=== PATIENT | male | born 1965 | race Caucasian/White ===

== ENCOUNTER 2016-10-09 14:45 | Emergency (ER) | payer MEDICARE ==
[2016-10-09] MEDS ORDERED: Adacel Vial IM ONE ×2 (15:28→16:16)
[2016-10-09] MEDS ORDERED: Vistaril 50 MG/ML IM ONE ×2 (16:09→16:13)
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
[2016-10-09 16:40] LABS: BASOPHIL % 0.5 % (0.0-0.4); Eosinophil % 7.6 % (0.00-5.0); Granulocytes % 55.9 % (36.0-66.0); Lymphocytes % 22.5 % (24.0-44.0); Mean Cell Volume 96.9 fl (78-100); Mean Corpuscular Hemoglobin 32.3 pg (26-32); Mean Platelet Volume 10.9 fl (6-9.5); Monocytes % 13.5 % (0.0-12.0); Platelet Count 216 K/mm3 (150-450); Red Blood Count 4.15 M/mm3 (4.1-5.6); Red Cell Distribution Width 14.9 % (11.5-14.0); White Blood Count 6.6 K/mm3 (4.0-10.5)
[2016-10-09 16:57] LABS: ALBUMIN 3.5 g/dL (3.4-5.0); ALKALINE PHOSPHATASE 85 U/L (46-116); ANION GAP 17.9 MEQ/L (5-15); BILIRUBIN,TOTAL 0.3 mg/dL (0.2-1.0); BLOOD UREA NITROGEN 17 mg/dL (9-20); CHLORIDE 103 mEq/L (98-107); Glucose 78 MG/DL (70-110); SGOT/AST 22 U/L (15-37); SGPT/ALT 17 U/L (12-78); SODIUM 138 mEq/L (136-145); Total Protein 7.6 gm/dL (6.4-8.2)
[2016-10-09 17:02] LABS: ACETAMINOPHEN < 2.0 ug/ml (10-30)
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
[2016-10-09 17:59] LABS: Collection Type CCMS
[2016-10-09 18:00] LABS: COMPLETE URINE MICROSCOPIC? YES; Mucus SLIGHT /HPF (NEGATIVE); Ph 5.5 (5-6); WBC 0-2 /HPF (0-5)
[2016-10-09] MEDS ORDERED: Ativan 2 MG/1 ML VIAL SL ONE (19:33)
[2016-10-09] MEDS ORDERED: Ativan 2 MG/1 ML VIAL ONE (19:34)
[2016-10-09 22:16] VITALS: BP 117/77; PULSE 77; O2SAT 97
== END 2016-10-09 22:16 ==
LOC: ED 14:45
DX: F25.9 Schizoaffective disorder, unspecified (principal); R41.0 Disorientation, unspecified; T14.8 Other injury of unspecified body region; W57.XXXA Bitten or stung by nonvenomous insect and other nonvenomous arthropods, initial encounter; L23.9 Allergic contact dermatitis, unspecified cause; S01.01XA Laceration without foreign body of scalp, initial encounter; Z79.899 Other long term (current) drug therapy
CPT/HCPCS: 96372; 99285; 93005; 81000; 36415; 80307 ×2; 80320; 83986; 85025; 80053; 70450; G0481; 90471; 90715; J2060; J3410

== ENCOUNTER 2020-04-24 10:40 | Emergency (ER) | payer MEDICARE ==
[2020-04-24] MEDS ORDERED: Sodium Chloride 0.9% 1000 ML 1,000 ML IV STA (11:15)
[2020-04-24] MEDS ORDERED: Sodium Chloride 0.9% 1000 ML 1,000 ML ONE (11:19)
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
[2020-04-24 11:43] LABS: Absolute Neutrophil Ct (ANC) 3.42 (1.4-6.9); BASOPHIL % 0.6 % (0.0-0.4); Basophil (Absolute #) 0.04 (0-0.4); Eosinophil % 2.7 % (0.00-5.0); Eosinophil (Absolute #) 0.17 (0-0.5); Hematocrit 45.9 % (42-50); Hemoglobin 15.3 gm/dl (12.5-18.0); Lymphocyte (Absolute #) 2.08 (1.0-4.6); Lymphocytes % 32.5 % (24.0-44.0); Mean Cell Volume 99.6 fl (78-100); Mean Corpuscular Hemoglobin 33.2 pg (26-32); Mean Corpuscular Hgb Concent. 33.3 g/dl (32-36); Monocyte (Absolute #) 0.69 (0.0-1.3); Monocytes % 10.8 % (0.0-12.0); Neutrophil % 53.4 % (36.0-66.0); Platelet Count 255 K/mm3 (150-450); Red Blood Count 4.61 M/mm3 (4.1-5.6); Red Cell Distribution Width 14.1 % (11.5-14.0); White Blood Count 6.4 K/mm3 (4.0-10.5)
[2020-04-24 11:45] LABS: Appearance CLEAR (CLEAR); Bilirubin NEGATIVE (NEGATIVE); Blood NEGATIVE Ery/ul (0-5); Glucose NEGATIVE (NEGATIVE); Ketones NEGATIVE (NEGATIVE); Leukocyte Esterase NEGATIVE (NEGATIVE); Nitrite NEGATIVE (NEGATIVE); Protein,Urine Dip NEGATIVE (Negative); Urobilinogen NEGATIVE mg/dL (0-1)
[2020-04-24 11:58] LABS: ALKALINE PHOSPHATASE 84 U/L (38-126); AMYLASE 109 U/L (30-110); ANION GAP 13.3 MEQ/L (5-15); BLOOD UREA NITROGEN 11 mg/dL (9-20); CHLORIDE 102 mmol/L (98-107); Calcium 9.6 mg/dL (8.4-10.2); Carbon Dioxide 30 mmol/L (22-30); Creatinine 1 0.89 mg/dL (0.66-1.25); EST GLOMERULAR FILTRATION RATE > 60.0 ML/MIN; Glucose 83 mg/dL (74-106); LIPASE 464 U/L (23-300); Potassium 3.8 mmol/L (3.5-5.1); SGOT/AST 24 U/L (17-59); SGPT/ALT 21 U/L (0-50); SODIUM 141 mmol/L (137-145); Total Protein 8.6 g/dL (6.3-8.2)
[2020-04-24 12:52] VITALS: PULSE 67
[2020-04-24 14:19] VITALS: BP 121/87; O2SAT 99
--- NOTE | 2020-04-24 18:23 | XRAY ---
Indication: Left abdomen pain. Multiple contiguous axial images obtained through the abdomen and pelvis prior to and following 80 cc Isovue 370 contrast as ordered. Comparison: None. Lung bases demonstrates pulmonary emphysema and a few calcified granulomas. No infiltrate or effusion. Heart is not enlarged. Noncontrasted images are negative for pathologic visceral calcification/calculi. Stomach is mildly fluid distended. Noncontrasted stomach and bowel loops appear nonobstructed. Normal appendix. No free fluid/air. Postcontrast images demonstrate normal visceral enhancement and renal excretion. Remaining liver, gallbladder, pancreas, spleen, adrenal glands, kidneys, ureters, bladder, and aorta appear unremarkable. No pathologic retroperitoneal lymphadenopathy. Osseous structures intact with mild/moderate degenerative changes throughout the spine and remote appearing T12 superior endplate fracture with Schmorl node. Impression: 1. Pulmonary emphysema, chronic bony findings, and pulmonary calcified granulomas. 2. Remaining CT abdomen/pelvis with and without contrast exam is negative. Comment: Preliminary interpretation was made by [facility]. No critical discrepancy.
--- NOTE | 2020-04-24 18:25 | XRAY ---
Indication: Left abdomen pain. Comparison: Chest April 14, 2020. 2 view abdomen nonacute and nonobstructed. A few pelvic phleboliths. Osseous structures intact with mild multilevel lumbar degenerative spondylosis, minimal double curvature scoliosis, pubis symphysis degenerative changes, and remote-appearing T12 compression fracture. Single AP chest again demonstrates normal heart and lungs with a few tiny calcified granulomas. Bony thorax intact again with old left 6 rib fracture. Impression: Nonacute abdomen with chronic bony findings. Stable nonacute one view chest with again chronic features.
== END 2020-04-24 14:24 | disposition home or self-care (01) ==
LOC: ED 10:40
DX: R10.9 Unspecified abdominal pain (principal); R10.32 Left lower quadrant pain; Z79.899 Other long term (current) drug therapy; I10 Essential (primary) hypertension; E78.00 Pure hypercholesterolemia, unspecified
CPT/HCPCS: 36415; 74022; 74178; 80053; 81001; 82150; 83690; 85025; 96360; 99284

== ENCOUNTER 2020-05-12 06:29 | Day surgery (SDC) | payer MEDICARE ==
[2020-05-12] MEDS ORDERED: Lactated Ringers 1,000 ML IV SCH (06:30)
[2020-05-12] MEDS ORDERED: DIPRIVAN 200 MG/20 ML IV ONE (07:46)
[2020-05-12 09:11] VITALS: BP 105/43; PULSE 83; O2SAT 92
--- NOTE | 2020-05-12 11:26 | OP ---
SURGERY DATE/TIME: 05/12/2020 0800 PREOPERATIVE DIAGNOSIS: Left lower quadrant abdominal pain. POSTOPERATIVE DIAGNOSIS: Normal colon. PROCEDURE: Diagnostic colonoscopy. SURGEON: Tony Jeffers M.D. ANESTHESIA: MAC by Carlos Glass CRNA. ESTIMATED BLOOD LOSS: None. SPECIMENS: None. DESCRIPTION OF PROCEDURE: After informed written consent was obtained, the patient was taken to the endoscopy suite. He was placed in placed in left lateral decubitus position and adequate level of anesthesia was titrated to desired level of consciousness. A digital rectal exam showed normal sphincter tone and no internal lesions. The scope was inserted into the rectum and sequentially the entire colonic mucosa was traversed. The cecum was reached and verified with direct visualization of ileocecal valve. Upon withdrawal careful mucosal inspection revealed scattered areas of liquid stool. Prep was noted to be fair. There were no obvious mucosal abnormalities throughout the entire length of the colon. Prior to withdrawal retroflexion was performed and showed no internal lesions. The scope was removed and the patient was transferred to the recovery room in good condition.
== END 2020-05-12 09:23 | disposition home or self-care (01) ==
LOC: SDC 06:29
PROVIDERS: ATTEND Family Medicine
DX: R10.32 Left lower quadrant pain (principal); Z09 Encounter for follow-up examination after completed treatment for conditions other than malignant neoplasm; Z86.010 Personal history of colon polyps; E78.5 Hyperlipidemia, unspecified; Z79.899 Other long term (current) drug therapy
CPT/HCPCS: J2704

== ENCOUNTER 2021-02-09 12:00 | Day surgery (SDC) | payer MEDICARE ==
[2021-02-09] MEDS ORDERED: Depo-Medrol 40 MG/ML IM ONE (12:01)
[2021-02-09] MEDS ORDERED: BUPIVACAINE 0.5% VIAL IJ ONE (12:01)
[2021-02-09] MEDS ORDERED: Xylocaine 1% Vial 30 ML PF IJ ONE (12:01)
[2021-02-09] MEDS ORDERED: DIPRIVAN 200 MG/20 ML IV ONE (12:26)
[2021-02-09] MEDS ORDERED: Lactated Ringers 1,000 ML IV ONE (13:18)
--- NOTE | 2021-02-09 13:36 | XRAY ---
Indication: Right shoulder injection. Intraoperative fluoroscopy provided for 9 seconds. Single digital spot image submitted for interpretation demonstrates needle tip projecting over the right glenohumeral joint superiorly. Small amount of contrast injected for needle tip placement. Correlate with intraoperative findings/report.
--- NOTE | 2021-02-09 13:49 | XRAY ---
9 seconds fluoroscopy time in surgery for intra-articular injection of the right shoulder.
== END 2021-02-09 13:10 | disposition home or self-care (01) ==
LOC: SDC-PAIN 12:00
PROVIDERS: ATTEND Psychiatry & Neurology Pain Medicine
DX: M19.011 Primary osteoarthritis, right shoulder (principal); Z79.899 Other long term (current) drug therapy
CPT/HCPCS: 20550; 20610; 73030; 77002; J1030; J2001; J2704; Q9966

== ENCOUNTER 2021-04-13 14:54 | Day surgery (SDC) | payer MEDICARE ==
[2021-04-13] MEDS ORDERED: Sodium Chloride 0.9% 10 ML FLUSH Syringe IJ ONE (14:55)
[2021-04-13] MEDS ORDERED: Depo-Medrol 40 MG/ML IM ONE (14:55)
[2021-04-13] MEDS ORDERED: DIPRIVAN 200 MG/20 ML IV ONE (16:41)
[2021-04-13] MEDS ORDERED: Lactated Ringers 1,000 ML IV ONE (17:27)
--- NOTE | 2021-04-13 21:47 | XRAY ---
Indication: Right L4-S1 transforaminal KARIME. Intraoperative fluoroscopy provided for 31 seconds. 4 digital spot image submitted for interpretation demonstrates posterior needle tips projecting over the expected right L4 and L5 nerve roots. Small amount of contrast injected for needle tip placement. Correlate with intraoperative findings/report.
--- NOTE | 2021-04-14 09:04 | XRAY ---
31 seconds fluoroscopy time in surgery for right L4-S1 transforaminal KARIME.
== END 2021-04-13 17:08 | disposition home or self-care (01) ==
LOC: SDC-PAIN 14:54
PROVIDERS: ATTEND Psychiatry & Neurology Pain Medicine
DX: M54.16 Radiculopathy, lumbar region (principal); I25.10 Atherosclerotic heart disease of native coronary artery without angina pectoris; J44.9 Chronic obstructive pulmonary disease, unspecified; F41.9 Anxiety disorder, unspecified; F32.9 Major depressive disorder, single episode, unspecified; Z79.899 Other long term (current) drug therapy
CPT/HCPCS: 64483; 64484; 72100; 77003; J1030; J2704; Q9966

== ENCOUNTER 2021-05-18 11:54 | Day surgery (SDC) | payer MEDICARE ==
[2021-05-18] MEDS ORDERED: Depo-Medrol 40 MG/ML IM ONE (11:55)
[2021-05-18] MEDS ORDERED: BUPIVACAINE 0.5% VIAL IJ ONE (11:55)
[2021-05-18] MEDS ORDERED: Lactated Ringers 1,000 ML IV ONE (13:46)
[2021-05-18] MEDS ORDERED: DIPRIVAN 200 MG/20 ML IV ONE (13:50)
--- NOTE | 2021-05-18 16:44 | XRAY ---
Indication: Intercostal nerve injection. Intraoperative fluoroscopy provided for 11 seconds. 3 digital spot images submitted for interpretation demonstrates needle tip projecting adjacent to a unknown inferior left rib. Correlate with intraoperative findings/report.
--- NOTE | 2021-05-18 17:02 | XRAY ---
11 seconds fluoroscopy time in surgery for intercostal nerve block.
== END 2021-05-18 14:20 | disposition home or self-care (01) ==
LOC: SDC-PAIN 11:54
PROVIDERS: ATTEND Psychiatry & Neurology Pain Medicine
DX: R07.81 Pleurodynia (principal); Z79.899 Other long term (current) drug therapy
CPT/HCPCS: 64420; 64421; 72020; 77002; J1030; J2704

== ENCOUNTER 2021-06-08 11:18 | Day surgery (SDC) | payer MEDICARE ==
[2021-06-08] MEDS ORDERED: Sodium Chloride 0.9% 10 ML FLUSH Syringe IJ ONE (11:19)
[2021-06-08] MEDS ORDERED: DIPRIVAN 200 MG/20 ML IV ONE (11:19)
[2021-06-08] MEDS ORDERED: Xylocaine 1% Vial 30 ML PF IJ ONE (11:19)
[2021-06-08] MEDS ORDERED: Depo-Medrol 40 MG/ML IM ONE (11:19)
[2021-06-08] MEDS ORDERED: Decadron 4 MG INJ IV ONE (11:19)
[2021-06-08] MEDS ORDERED: Lactated Ringers 1,000 ML IV ONE (13:39)
--- NOTE | 2021-06-08 14:45 | XRAY ---
Indication: Right L4-S1 transforaminal KARIME. Intraoperative fluoroscopy provided for 28 seconds. 3 digital spot images submitted for interpretation demonstrates posterior needle tips projecting over the expected right L4 and L5 nerve roots. Small amount of contrast injected for needle tip placement. Correlate with intraoperative findings/report.
--- NOTE | 2021-06-08 14:45 | XRAY ---
Indication: Right piriformis injection. Intraoperative fluoroscopy provided for 15 seconds. Single digital spot image submitted for interpretation demonstrates posterior needle tip projecting over the expected right piriformis muscle. Small amount of contrast injected for needle tip placement. Correlate with intraoperative findings/report.
--- NOTE | 2021-06-08 14:47 | XRAY ---
28 seconds fluoroscopy time in surgery for right L4-S1 transforaminal KARIME.
--- NOTE | 2021-06-08 14:47 | XRAY ---
15 seconds fluoroscopy time in surgery for injection of the right piriformis muscle.
== END 2021-06-08 14:13 | disposition home or self-care (01) ==
LOC: SDC-PAIN 11:18
PROVIDERS: ATTEND Psychiatry & Neurology Pain Medicine
DX: M54.16 Radiculopathy, lumbar region (principal); M79.18 Myalgia, other site
CPT/HCPCS: 20552; 64483; 64484; 72020; 72100; 77002; 77003; J1030; J1100; J2001; J2704; Q9966

== ENCOUNTER 2022-03-19 15:37 | Emergency (ER) | payer MEDICARE ==
[2022-03-19] MEDS ORDERED: LEVOFLOXACIN 750MG/150ML D5W 750 MG/150 ML BAG IV STA (15:49)
[2022-03-19] MEDS ORDERED: LEVOFLOXACIN 750MG/150ML D5W 750 MG/150 ML BAG IV ONE (16:08)
[2022-03-19] MEDS ORDERED: Lactated Ringers 1,000 ML IV ONE (16:08)
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
[2022-03-19] MEDS: Lactated Ringers 1,000 ML IV SCH ×2 (16:11→17:43)
[2022-03-19] MEDS ORDERED: Hydromorphone 1 mg/ml Injection IV ONE (16:18)
[2022-03-19 16:19] LABS: Absolute Neutrophil Ct (ANC) 6.41 x10^3/uL (1.4-6.9); Basophil (Absolute #) 0.02 x10^3/uL (0-0.4); Hematocrit 35.1 % (42-50); Hemoglobin 11.2 g/dL (12.5-18.0); Lymphocyte (Absolute #) 1.02 x10^3/uL (1.0-4.6); Lymphocytes % 11.9 % (24.0-44.0); Mean Cell Volume 96.4 fL (78-100); Mean Corpuscular Hemoglobin 30.8 pg (26-32); Mean Corpuscular Hgb Concent. 31.9 g/dL (32-36); Mean Platelet Volume 9.8 fL (7.5-11.0); Monocyte (Absolute #) 0.46 x10^3/uL (0.0-1.3); Monocytes % 5.4 % (0.0-12.0); Neutrophil % 75.1 % (36.0-66.0); Platelet Count 361 x10^3/uL (150-450); Red Blood Count 3.64 x10^6/uL (4.1-5.6); Red Cell Distribution Width 14.4 % (11.5-14.0); White Blood Count 8.5 x10^3/uL (4.0-10.5)
[2022-03-19] MEDS ORDERED: Hydromorphone 1 mg/ml Injection ONE (16:20)
[2022-03-19 16:34] LABS: ALBUMIN 3.8 g/dL (3.5-5.0); ALKALINE PHOSPHATASE 82 U/L (38-126); ANION GAP 11.5 MEQ/L (5-15); BLOOD UREA NITROGEN 12 mg/dL (9-20); CHLORIDE 101 mmol/L (98-107); Calcium 8.9 mg/dL (8.4-10.2); Carbon Dioxide 31 mmol/L (22-30); Creatinine 1 0.78 mg/dL (0.66-1.25); EST GLOMERULAR FILTRATION RATE > 60.0 ML/MIN; Glucose 90 mg/dL (74-106); Potassium 4.3 mmol/L (3.5-5.1); SGOT/AST 20 U/L (17-59); SGPT/ALT 18 U/L (0-50); SODIUM 139 mmol/L (137-145); Total Protein 7.4 g/dL (6.3-8.2)
[2022-03-19] MEDS ORDERED: solu-MEDROL 125 MG, Sterile H2O 10 ml 2 ML IV ONE ×2 (16:58)
[2022-03-19] MEDS ORDERED: Sterile H2O 10 ml IJ ONE (17:44)
[2022-03-19] MEDS ORDERED: solu-MEDROL ONE (17:44)
[2022-03-19 17:51] VITALS: BP 146/88; PULSE 70; O2SAT 97
== END 2022-03-19 18:10 | disposition home or self-care (01) ==
LOC: ED 15:37
DX: L03.312 Cellulitis of back [any part except buttock and flank] (principal); L50.0 Allergic urticaria; L50.6 Contact urticaria; Z79.899 Other long term (current) drug therapy
CPT/HCPCS: 36000; 36415; 80053; 83605; 84145; 85025; 87040; 87070; 87077; 87186; 93041; 94760; 96365; 96374; 96375; 99284; J1170; J1956; J2930

== ENCOUNTER 2022-09-29 17:19 | Emergency (ER) | payer MEDICARE ==
[2022-09-29 18:24] VITALS: PULSE 89; O2SAT 97
[2022-09-29] MEDS ORDERED: NORCO 5/325 MG PO ONE (18:59)
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
[2022-09-29 20:17] VITALS: BP 154/98
[2022-09-29] MEDS ORDERED: NORCO 5/325 MG ONE (20:19)
--- NOTE | 2022-09-29 22:31 | XRAY ---
Indication: Bruising following injury. Comparison: None 3 view right 4th finger demonstrates osteopenia and nondisplaced tuft fracture with soft tissue swelling. No other bony, articular, or soft tissue abnormalities.
== END 2022-09-29 20:26 | disposition home or self-care (01) ==
LOC: ED 17:19
DX: S67.194A Crushing injury of right ring finger, initial encounter (principal); S62.644A Nondisplaced fracture of proximal phalanx of right ring finger, initial encounter for closed fracture; W23.0XXA Caught, crushed, jammed, or pinched between moving objects, initial encounter; E78.5 Hyperlipidemia, unspecified; Z79.899 Other long term (current) drug therapy
CPT/HCPCS: 11740; 73140; 99283; A9270-GY

== ENCOUNTER 2024-07-10 19:29 | Emergency (ER) | payer MEDICARE ==
[2024-07-10 19:44] VITALS: RESP 18; TEMP 98.9
[2024-07-10] MEDS ORDERED: TORAdol 30 mg Injection ONE (20:11)
[2024-07-10] MEDS: TORAdol 30 mg Injection IM ONE (20:12)
[2024-07-10 20:21] VITALS: O2SAT 98
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
[2024-07-10 20:36] VITALS: BP 111/77; PULSE 86
--- NOTE | 2024-07-11 08:46 | XRAY ---
Indication: Pain following fall. Comparison: None 3 view left wrist demonstrates osteopenia, radiocarpal degenerative joint space narrowing, and faint ulnar carpal degenerative chondrocalcinosis. No acute bony, articular, or soft tissue abnormalities.
== END 2024-07-10 20:39 | disposition home or self-care (01) ==
LOC: ED 19:29
DX: S63.502A Unspecified sprain of left wrist, initial encounter (principal); E78.5 Hyperlipidemia, unspecified; Z79.899 Other long term (current) drug therapy
CPT/HCPCS: 73110; 96372; 99283; J1885; L3908